=== PATIENT | female | born 1955 | race Caucasian/White ===

== ENCOUNTER → 2021-03-17 | Outpatient (CLI) | payer BC ==
[~2021-03-17] MED LIST: REGADENOSON 0.4 MG/5 ML DISP.SYRIN. IV ONE
--- NOTE | 2021-03-17 13:09 | RAD ---
MR#: [id number] Date of Study: 03/17/2021 Ordering Physician: ALEIDA CHAVEZ Referring Physician: DAGOBERTO ORR Tech: RT Jorge Haines) (N) APPROVED REPORT Test Type: Pharmacological Stress Nurse/Tech: Willard Dimas RN Test Indications: high blood pressure, chest pain Cardiac History: No known cardiac Medications: See Electronic Medical Record Medical History: See Electronic Medical Record Resting ECG: SR Resting Heart Rate: 56 bpm Resting Blood Pressure: 133/89mmHg Pretest Chest Pain: None Nurse/Tech Notes Lungs CTA, S1S2 Consent: The procedure was explained to the patient in lay terms. Informed consent was witnessed. Sotero eout was entered into [email or web address]. History and Stress Test performed by RT Jorge Haines) (N) Pharm. Details Pharmacologic stress testing was performed using 0.4mg per 5ml of regadenoson given intravenously ove r 7-10 seconds. Stress Symptoms No chest pain or symptoms. POST EXERCISE Reason for Termination: Infusion complete Max HR: 82 bpm Max Blood Pressure: 131/78mmHg Blood Pressure response to exercise: Normal blood pressure response during stress. Heart Rate response to exercise: Normal response Chest Pain: No. Arrhythmia: No. ST Change: No. INTERPRETATION Stress EKG Conclusion: Baseline EKG showed sinus rhythm. No ischemic changes at peak stress. No arr hythmias. Imaging Protocol IMAGE PROTOCOL: Rest Tc-99m/stress Tc-99m 1 day Rest: Stress: Viability: Radiopharm.Tc99m IpygciguyUo17w Sestamibi Fkmw18qIm 32mCi Duration 13min. 13min. Img Date 03/17/2021 03/17/2021 Inj-Img Ycvw94zuh. 60min. Rest Admin Site:IV - Right AntecubitalAdministrator:RT Yancy (R)(N) Stress Admin Site: IV - Right AntecubitalAdministrator: RT Yancy (Destiny)(N) STRESS DATA End Diast. Vol.149.0mlLVEDV index BSA79.0ml End Syst. Vol.61.0mlLVESV index BSA32.0ml Myocardial Ojgn982.0gEject. Qphbdlmr02.0% Stress Scores Regional WT0.00Summed WT2.00 Regional WM0.00Summed WM3.00 Study quality was good. Left Ventricular size was Normal at Rest and Stress. Lung uptake was . Left Ventricular ejection fraction is 59%. The rest and stress images show normal perfusion, normal contraction and thickening. LV Perf. Quant 17 Seg. SSS2.00 17 Seg. SRS3.00 17 Seg. SDS0.00 Stress Defect Extent (% LAD)3.80Rest Defect Extent (% LAD)10.60Rev. Defect Extent (% LAD)0.60 Stress Defect Extent (% LCX) 5.00Rest Defect Extent (% LCX)13.80Rev. Defect Extent (% LCX)0.00 Stress Defect Extent (% RCA)0.00Rest Defect Extent (% RCA)0.00Rev. Defect Extent (% RCA)0.00 Stress Defect Extent (% LUZ)2.60Rest Defect Extent (% LUZ)8.00Rev. Defect Extent (% LUZ)0.70 Conclusion 1. Regadenoson cardioisotope stress test did not show any evidence of ischemia or infarct. 2. Normal left ventricular systolic function with ejection fraction calculated at 59%. 3. Low risk for cardiac events. Signed by : Aleida Chavez, Electronically Approved : 03/17/2021 13:08:31
--- NOTE | 2021-03-17 14:33 | CARD ---
MR#: [id number] Date of Study: 03/17/2021 Ordering Physician: ALEIDA PRABHAKAR, Referring Physician: ALEIDA PRABHAKAR, Tech: Niesha Shepard, [facility] APPROVED REPORT EXAM: Two-dimensional and M-mode echocardiogram with Doppler and color Doppler. Other Information Quality : AverageHR: 64bpm INDICATION Chest Pain 2D DIMENSIONS RVDd3.4 (2.9-3.5cm)Left Atrium(2D)3.3 (1.6-4.0cm) IVSd1.0 (0.7-1.1cm)Aortic Root(2D)3.2 (2.0-3.7cm) LVDd5.7 (3.9-5.9cm)LVOT Diameter2.1 (1.8-2.4cm) PWd1.0 (0.7-1.1cm)LVDs3.6 (2.5-4.0cm) FS (%) 36.0 %SV102.1 ml LVEF(%)60.0 (>50%) Aortic Valve AoV Peak Renny.136.3cm/sAoV VTI27.5cm AO Peak GR.7.4mmHgLVOT Peak Renny.98.7cm/s LVOT VTI 20.71cmAO Mean GR.4mmHg RAFFAELE (VMAX)1.46bu3GND (VTI)2.49cm2 Mitral Valve MV E Czlurkuo72.9cm/sMV DECEL LONT788nr MV A Kxhojfco92.9cm/sMV SWO72ys E/A Ratio0.8MVA (PHT)2.64cm2 TDI E/Lateral E'8.8E/Medial E'11.5 Pulmonary Valve PV Peak Xcnppbgi77.0cm/sPV Peak Grad.3mmHg Tricuspid Valve TR P. Ktanaunc072cq/sRAP OACEGOJR6jzXk TR Peak Gr.05qqZhBUWJ13qrRb Pulmonary Vein S1 Epahunqw00.4cm/sD2 Rljnzwua39.8cm/s PVa [id number] LEFT VENTRICLE The left ventricle is normal size. There is borderline to mild concentric left ventricular hypertroph y. The left ventricular systolic function is normal. The Ejection Fraction is 55%. There is normal LV segmental wall motion. Transmitral Doppler flow pattern is Grade I-abnormal relaxation pattern. RIGHT VENTRICLE The right ventricle is normal size. There is normal right ventricular wall thickness. The right ventr icular systolic function is normal. ATRIA The left atrium size is normal. The right atrium size is normal. The interatrial septum is intact wit h no evidence for an atrial septal defect or patent foramen ovale as noted on 2-D or Doppler imaging. AORTIC VALVE The aortic valve is normal in structure and function. Doppler and Color Flow revealed trace aortic re gurgitation. Calculated aortic valve area is 2.43 cm2 with maximum pressure gradient of 10 mmHg and m elvin pressure gradient of 5 mmHg. There is no significant aortic valvular stenosis. MITRAL VALVE The mitral valve is normal in structure and function. There is no evidence of mitral valve prolapse. There is no mitral valve stenosis. Doppler and Color-flow revealed trace mitral regurgitation. TRICUSPID VALVE The tricuspid valve is normal in structure and function. Doppler and Color Flow revealed trace tricus pid regurgitation with an estimated PAP of 20 mmHg. There is no tricuspid valve stenosis. PULMONIC VALVE The pulmonic valve is not well visualized. Doppler and Color Flow revealed trace pulmonic valvular re gurgitation. GREAT VESSELS The aortic root is normal in size. The ascending aorta is normal in size. The IVC is normal in size a nd collapses >50% with inspiration. PERICARDIAL EFFUSION There is no evidence of significant pericardial effusion. Critical Notification Critical Value: No <Conclusion> The left ventricular systolic function is normal. The Ejection Fraction is 55%. There is normal LV segmental wall motion. Transmitral Doppler flow pattern is Grade I-abnormal relaxation pattern. Trace mitral regurgitation. Trace tricuspid regurgitation with an estimated PAP of 20 mmHg. There is no evidence of significant pericardial effusion. Signed by : Aleida Prabhakar, Electronically Approved : 03/17/2021 14:32:38
== END ==
LOC: NM 07:53
PROVIDERS: ATTEND Internal Medicine Cardiovascular Disease
DX: I51.7 Cardiomegaly (principal)
CPT/HCPCS: 78452; 93017; 93306; A9500; J2785